=== PATIENT | female | born 1995 | race Caucasian/White ===

== ENCOUNTER 2018-05-19 15:27 | Inpatient (IN) | payer OTHER ==
[~2018-05-19] VITALS: Ht 170.2 cm; Wt 137.9 kg
[~2018-05-19 15:27] MED LIST: BIRTH CONTROL; SYNTHROID
[2018-05-19 15:30] VITALS: BP 151/85
[2018-05-19] MEDS ORDERED: SYNTHROID175 MCG PO (15:39)
[2018-05-19] MEDS ORDERED: ELIQUIS5 MG PO (15:40)
[2018-05-19 16:39] LABS: ANION GAP 9 mmol/L (7-16); BUN 6 mg/dL (7-18); CHLORIDE 100 mmol/L (98-107); CO2 27 mmol/L (21-32); CREATININE 0.9 mg/dL (0.6-1.3); GLUCOSE 101 mg/dL (70-99); POTASSIUM 3.7 mmol/L (3.5-5.1); SODIUM 136 mmol/L (136-145)
[2018-05-19 16:46] LABS: ALBUMIN 4.1 g/dL (3.4-5.0); ALKALINE PHOSPHATASE 92 U/L (46-116); SGOT 21 U/L (15-37); SGPT 31 U/L (30-65); TOTAL BILIRUBIN 0.6 mg/dL (<0.1-1.0); TOTAL PROTEIN 8.5 g/dL (6.4-8.2); TROPONIN-I LEVEL <0.06 ng/mL (<0.06)
[2018-05-19 16:47] LABS: ABSOLUTE EOSINOPHILS 0.2 thou/uL (0.0-0.7); ABSOLUTE MONOCYTES 0.8 thou/uL (0.0-1.2); ABSOLUTE NEUTROPHILS 5.1 thou/uL (1.6-8.1); BASOPHILS 0.4 %; EOSINOPHILS 2.1 %; HEMATOCRIT 39.8 % (37.0-47.0); HEMOGLOBIN 13.5 gm/dL (12.0-15.0); LYMPHOCYTES 25.1 %; MCH 31.2 pg (26.0-34.0); MCHC 34.1 g/dL (28.0-37.0); MCV 91.6 fL (80.0-100.0); MONOCYTES 9.6 %; MPV 8.3 fl. (7.2-11.1); NUCLEATED RBCS 0 /100WBC; PLATELET COUNT* 336 thou/uL (150-400); POLYS 62.8 %; RBC 4.34 mil/uL (4.20-5.00); RDW-CV 12.3 % (10.5-14.5); WBC 8.1 thou/uL (4.0-11.0)
[2018-05-19 17:25] LABS: APTT 34.5 Seconds (25.0-31.3); INR 1.1; PROTIME 11.1 Seconds (9.20-11.50)
[2018-05-19 19:50] VITALS: BP 126/68
[2018-05-19 20:00] VITALS: BP 129/77
[2018-05-19 23:52] VITALS: BP 108/67
[2018-05-20 04:00] VITALS: BP 134/88
[2018-05-20 05:05] LABS: ABSOLUTE EOSINOPHILS 0.2 thou/uL (0.0-0.7); ABSOLUTE LYMPHOCYTES 2.6 thou/uL (0.8-5.3); ABSOLUTE NEUTROPHILS 4.1 thou/uL (1.6-8.1); BASOPHILS 0.4 %; EOSINOPHILS 2.4 %; HEMATOCRIT 39.3 % (37.0-47.0); HEMOGLOBIN 13.2 gm/dL (12.0-15.0); LYMPHOCYTES 32.7 %; MCH 30.8 pg (26.0-34.0); MCHC 33.7 g/dL (28.0-37.0); MCV 91.3 fL (80.0-100.0); MONOCYTES 13.1 %; MPV 7.8 fl. (7.2-11.1); NUCLEATED RBCS 0 /100WBC; PLATELET COUNT* 334 thou/uL (150-400); POLYS 51.4 %; RDW-CV 11.9 % (10.5-14.5); WBC 7.9 thou/uL (4.0-11.0)
[2018-05-20 05:34] LABS: CALCIUM 9.5 mg/dL (8.5-10.1); CREATININE 0.8 mg/dL (0.6-1.3); POTASSIUM 3.8 mmol/L (3.5-5.1)
[2018-05-20 07:52] VITALS: BP 151/56
--- NOTE | 2018-05-20 10:37 | EKG ---
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 05/20/18 [facility] [phone] Kilo Monet MD, FACC /EPI
[2018-05-20 12:05] VITALS: BP 126/85
--- NOTE | 2018-05-20 14:39 | 2DMMODE ---
[place] [address] 2 D/M-MODE ECHOCARDIOGRAM Name: NEO NAYLOR Room: [address] IN .R.#: [id number] Admission: 05/19/18 Attend Phys: Valdez Mondragon, Discharge: Date of : [birth year] Date of Service: 05/20/18 1439 Report #: [id number] THIS REPORT FOR: //name// APPROVED REPORT Study performed: 05/20/2018 10:59:15 EXAM: Comprehensive 2D, Doppler, and color-flow Echocardiogram Patient Location: Bedside BSA: 2.42 HR: 67 bpm BP: 151/56 mmHg Other Information Study Quality: Fair Indications Pulmonary Embolism 2D Dimensions LVEF(%): 71.83 (>50%) IVSd: 10.39 (7-11mm) LVOT Diam: 23.31 (18-24mm) LVDd: 54.59 mm PWd: 11.37 (7-11mm) Ascending Ao: 31.96 (22-36mm) LVDs: 31.96 (25-40mm) Aortic Root: 31.25 mm Sim's LVEF: 71.83 % Volumes Left Atrial Volume (Systole) LA ESV Index: 19.10 mL/m2 Aortic Valve AoV Peak Brandon.: 1.17 m/s AO Peak Gr.: 5.47 mmHg LVOT Max P.12 mmHg AO Mean Gr.: 3.28 mmHg LVOT Mean P.87 mmHg LVOT Max V: 1.01 m/s AO V2 VTI: 22.61 cm LVOT Mean V: 0.62 m/s VERÓNICA (VTI): 3.89 cm2 LVOT V1 VTI: 20.63 cm Mitral Valve E/A Ratio: 1.88 MV Decel. Time: 186.47 ms MV E Max Brandon.: 0.78 m/[place] [address] 2 D/M-MODE ECHOCARDIOGRAM Name: NEO NAYLOR Room: [address] IN ..#: [id number] Admission: 05/19/18 Attend Phys: Valdez Mondragon, Discharge: Date of : 89 Date of Service: 05/20/18 1439 Report #: [id number] MV PHT: 54.08 ms MVA (PHT): 4.07 cm2 TDI E/Lateral E': 5.57 E/Medial E': 7.80 Medial E' Brandon.: 0.10 m/s Lateral E' Branodn.: 0.14 m/s Pulmonary Valve PV Peak Brandon.: 0.90 m/s PV Peak Gr.: 3.23 mmHg Tricuspid Valve RAP Estimate: 5.00 mmHg TR Peak Gr.: 6.46 mmHg RVSP: 11.46 mmHg PA Pressure: 11.46 mmHg Left Ventricle The left ventricle is normal size. There is normal LV segmental wall motion. There is normal left ventricular wall thickness. Left ventricular systolic function is normal. The left ventricular ejection fraction is within the normal range. LVEF is 60-65%. The left ventricular diastolic function is normal. Right Ventricle The right ventricle is normal size. The right ventricular systolic function is normal. Atria The left atrium size is normal. Interatrial septum not well visualized. The right atrium size is normal. Aortic Valve The aortic valve is normal in structure. No aortic regurgitation is present. There is no aortic valvular stenosis. Mitral Valve The mitral valve is normal in structure. There is no mitral valve regurgitation noted. No evidence of mitral valve stenosis. Tricuspid Valve The tricuspid valve is normal in structure. Trace tricuspid regurgitation. Pulmonic Valve Pulmonic valve is not well visualized. There is no pulmonic [place] [address] 2 D/M-MODE ECHOCARDIOGRAM Name: NEO NAYLOR Room: [address] IN M.R.#: [id number] Admission: 05/19/18 Attend Phys: Valdez Mondragon, Discharge: Date of : 89 Date of Service: 05/20/18 1439 Report #: [id number] Great Vessels The aortic root is normal in size. IVC is not well visualized. Pericardium There is no pericardial effusion. <Conclusion> Left ventricular systolic function is normal. The left ventricular ejection fraction is within the normal range. <ELECTRONICALLY SIGNED> By: Kilo Monet MD, FACC 05/20/18 1439 1439 1439 Kilo Monet MD, FACC /INF
[2018-05-20 16:47] VITALS: BP 120/67
[2018-05-20 19:30] VITALS: BP 109/62
[2018-05-21] VITALS: BP 124/68
[2018-05-21 04:00] VITALS: BP 113/58
[2018-05-21 04:32] LABS: CALCIUM 8.3 mg/dL (8.5-10.1); CREATININE 0.8 mg/dL (0.6-1.3); POTASSIUM 4.6 mmol/L (3.5-5.1)
[2018-05-21 04:48] LABS: ABSOLUTE BASOPHILS 0.1 thou/uL (0.0-0.2); ABSOLUTE EOSINOPHILS 0.2 thou/uL (0.0-0.7); ABSOLUTE LYMPHOCYTES 3.1 thou/uL (0.8-5.3); ABSOLUTE MONOCYTES 1.1 thou/uL (0.0-1.2); ABSOLUTE NEUTROPHILS 3.9 thou/uL (1.6-8.1); BASOPHILS 0.7 %; EOSINOPHILS 2.9 %; HEMATOCRIT 36.7 % (37.0-47.0); HEMOGLOBIN 12.5 gm/dL (12.0-15.0); LYMPHOCYTES 37.2 %; MCH 31.2 pg (26.0-34.0); MCHC 34.1 g/dL (28.0-37.0); MCV 91.7 fL (80.0-100.0); MONOCYTES 12.8 %; MPV 8.1 fl. (7.2-11.1); NUCLEATED RBCS 0 /100WBC; PLATELET COUNT* 349 thou/uL (150-400); POLYS 46.4 %; RBC 4.01 mil/uL (4.20-5.00); RDW-CV 12.1 % (10.5-14.5); WBC 8.4 thou/uL (4.0-11.0)
[2018-05-21 08:00] VITALS: BP 91/57
[2018-05-21 10:26] VITALS: BP 91/57
--- NOTE | 2018-05-22 15:19 | CON ---
[address] [address] CONSULTATION Name: NEO NAYLOR Room: [address] IN .R.#: [id number] Admission: 05/19/18 Attend Phys: Valdez Mondragon MD Discharge: 05/21/18 Date of : [birth year] Report #: [id number] THIS REPORT FOR: //name// CC: Valdez Mondragon [facility] physician/PCP DATE OF SERVICE: 05/20/2018 CONSULTATION REQUESTED BY: Dr. Mondragon. HISTORY OF PRESENT ILLNESS: This is a 22-year-old female, past medical history includes a history of morbid obesity as well as Milla's thyroiditis. Previously, she has had hypothyroidism related to this. The patient states that she has never had a blood clot in her lifetime before. The patient is a lifetime nonsmoker. She does have a family history of blood clots. 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 She developed right-sided leg pain a few days ago, was seen at a hospital in [place], was diagnosed with acute pulmonary emboli with DVT and was started on Eliquis. The patient, however, continued to have chest pain, which is severe around 7/10 on presentation, with respiration and coughing; and therefore, came to this hospital. The patient has had another CTA chest, which is as discussed below. It does show pulmonary emboli. The patient, at this time, is continuing to need narcotics for pain control. She is currently on 2 liters oxygen, saturating 100%. She is hemodynamically stable. The patient does have long-standing sleep complaints, including disturbed sleep as well as sleepiness during the day at times. She does have a minor sore throat for the last few days. She says her leg pain has now subsided. REVIEW OF SYSTEMS: Review of systems for 12 points is negative, except as mentioned above. PAST MEDICAL HISTORY: There is a mention of pulmonary emboli in 2009, although the patient clearly states that this information is not correct and she has never had pulmonary emboli before. Hypothyroidism, previously related to Milla thyroiditis. The patient says that she subsequently was euthyroid and this was discontinued. Morbid obesity, history of an ovarian cyst and possible history of polycystic ovarian syndrome. The patient has previously been treated with metformin. SOCIAL HISTORY: She is essentially a lifetime nonsmoker. No known history of heavy alcohol use or illegal drug use. FAMILY HISTORY: [place] [address] CONSULTATION Name: NEO NAYLOR Pramod Room: [address]#: [id number] Admission: 05/19/18 Attend Phys: Valdez Mondragon MD Discharge: 05/21/18 Date of : [birth year] Report #: [id number] MEDICATIONS: Current medication list in [facility] reviewed. MEDICATIONS ON ADMISSION: The patient was started on Eliquis 2 days ago from a hospital in [place]. ALLERGIES: THERE IS A QUESTIONABLE ALLERGY TO HYDROCODONE. The patient, in fact, is on oxycodone right now and is tolerating without an adverse reaction. PHYSICAL EXAMINATION: GENERAL: She is alert, awake and oriented. VITAL SIGNS: She has a pulse of 71 and a blood pressure of 126/85 saturating 100% on 2 liters oxygen and respiratory rate 15-18. She is afebrile with a temperature of 36.9. She does have morbid obesity with a body mass index elevated to 47.6. HEENT: Head is normocephalic and atraumatic. Pupils are equal and reactive. There is throat erythema present. Airway is Mallampati 3. She also has a small mouth opening. NECK: Does not show raised JVP, asymmetry, mass or lymph nodes. CHEST: Symmetrical expansion on inspection and palpation. On auscultation, chest is clear. There is no rash present over the site of stated pain. HEART: Regular. No murmur. ABDOMEN: Soft and nontender. EXTREMITIES: Lower extremities show no edema, no calf tenderness. SKIN: Dry and intact. NEUROLOGICAL EXAMINATION: Moves all extremities bilaterally equally and spontaneously. There is no focal deficit identified. LABORATORY DATA: The patient's CT chest films as well as report are reviewed. This is also as discussed below in more detail. The patient's lab work is in [facility] and this is also reviewed. The hypercoagulability profile is pending at this time. ASSESSMENT AND PLAN: 1. Acute pulmonary emboli with a deep venous thrombosis, right lower extremity. The patient is noted to be driving long hours. She does have at least one family member who has had a history of DVT as well. At this time, I agree with Eliquis. I did recommend increasing Eliquis to 10 mg b.i.d. for 1 week, after which suggest cutting it back down to 5 mg b.i.d. Suggest obtaining a repeat venous Dopplers as well as a CT chest after 3 months and then re-evaluating. Meanwhile, the patient also has had an echocardiogram performed and we will await results. I will see if we can find a copy of the venous Dopplers performed in [place] recently. If this is not available and for documentation purposes, I will go ahead and obtain venous Dopplers now as well. The duration of the time the patient needs anticoagulation is to be determined. As discussed, we will continue Eliquis for 3 months and then reassess with CT chest and venous Dopplers. By that time, the hypercoagulability profile will also be [facility] [address] [place] [address] CONSULTATION Name: RIGOBERTODAVIDDANISHNEO Pramod Room: [address] IN ..#: [id number] Admission: 05/19/18 Attend Phys: Valdez Mondragon MD Discharge: 05/21/18 Date of : 89 Report #: [id number] back. I would hold off on placing an IVC filter for now. 2. Morbid obesity with hypersomnia/sleep disturbances. The patient appears to have obstructive sleep apnea. Suggest obtaining outpatient sleep study down the line. May also consider weight loss surgery. 3. Atelectasis/rule out infiltrates. There are vague radiopaque densities at bilateral lung bases. I feel this is likely atelectasis. The patient is noted to have some mild throat erythema as well. I cannot completely rule out the possibility of pneumonia at bilateral lung bases; however, the patient's symptoms are more consistent with this being atelectasis. Therefore, I did not order antibiotics for now. We will follow. This will be a consideration later, should her condition deteriorate. Thanks for this consultation. <ELECTRONICALLY SIGNED> By: Abhishek Hogan MD 05/22/18 1519 1224 [id number] cortez Hernandez
== END 2018-05-21 11:43 | disposition home or self-care (01) | DRG 299 ==
LOC: M.ERS 15:27 → M.TBA-ER 18:11 → M.2W 18:11
PROVIDERS: Personal Emergency Response Attendant; ADMIT Internal Medicine
DX: I82.401 Acute embolism and thrombosis of unspecified deep veins of right lower extremity (principal); I26.99 Other pulmonary embolism without acute cor pulmonale; J98.11 Atelectasis; Z68.42 Body mass index [BMI] 45.0-49.9, adult; G47.10 Hypersomnia, unspecified; G47.9 Sleep disorder, unspecified; E66.01 Morbid (severe) obesity due to excess calories; I51.9 Heart disease, unspecified; E28.2 Polycystic ovarian syndrome; E03.9 Hypothyroidism, unspecified; Z79.01 Long term (current) use of anticoagulants; Z79.899 Other long term (current) drug therapy; Z88.8 Allergy status to other drugs, medicaments and biological substances; Z83.49 Family history of other endocrine, nutritional and metabolic diseases

== ENCOUNTER 2019-10-07 03:08 | Emergency (ER) | payer OTHER ==
[~2019-10-07] VITALS: Ht 170.2 cm; Wt 145.2 kg
[~2019-10-07 03:08] MED LIST changes: +ELIQUIS5 MG PO; +SYNTHROID175 MCG PO
[2019-10-07 03:18] VITALS: BP 161/100
== END 2019-10-07 03:43 | disposition home or self-care (01) ==
LOC: M.ERS 03:08
DX: F19.959 Other psychoactive substance use, unspecified with psychoactive substance-induced psychotic disorder, unspecified (principal); T50.995A Adverse effect of other drugs, medicaments and biological substances, initial encounter; E03.9 Hypothyroidism, unspecified; Y92.89 Other specified places as the place of occurrence of the external cause